=== PATIENT | male | born 1975 | race Caucasian/White ===

== ENCOUNTER 2017-12-29 19:50 | Inpatient (IN) | payer MEDICAID ==
[~2017-12-29] VITALS: Ht 182.9 cm; Wt 95.3 kg
--- NOTE | ~2017-12-29 | OP ---
PATIENT NAME: DANIEL ATWOOD MEDICAL RECORD: [id number] :71 LOCATION:[id number] ADMISSION DATE:12/29/17 SURGEON: FRANCISCA SEALS MD DATE OF OPERATION: 01/01/2018 PREOPERATIVE DIAGNOSIS: Chronic osteomyelitis of the left foot with multiple operative interventions. POSTOPERATIVE DIAGNOSIS: Chronic osteomyelitis of the left foot with multiple operative interventions. PROCEDURE: Left BKA. SURGEON: Francisca Seals MD ANESTHESIA: General. INTRAOPERATIVE COMPLICATIONS: None. SUMMARY OF PATHOLOGIC FINDINGS: Essentially no pathology was found at this level, but the patient's foot was riddled with chronic osteomyelitis. OPERATIVE SUMMARY IN DETAIL: After obtaining the appropriate preoperative orthopedic surgery consent as well as anesthetic consultation, evaluation, and clearance, the patient was brought to the operating room and placed on the operating table in supine position. After general laryngeal mask was administered, tourniquet was placed about the proximal aspect of the left lower extremity. Left lower extremity was then prepped and draped in routine sterile fashion. The leg was elevated and exsanguinated and tourniquet was inflated to 350 mmHg. A fishmouth incision was drawn. Incision was carefully taken down to the level of the periosteum across the tibia. Dissection was then carried down to the fibula and then a corticotomy was done across the tibia and the fibula and then the amputation knife was then used to create a long posterior flap. Portion of the posterior gastroc flap had to be trimmed. At this point, all vessels were identified, clamped, and ligated. When it was felt that all vessels had been identified, the tourniquet was deflated. No major bleeding was noted. One small vein had to be tied off. The operative site was then copiously irrigated and closed with the posterior flap fascia to the anterior periosteum and anterior fascia followed by closure of the skin with #1 Vicryl and skin kashif. Sterile dressings were applied. The patient was awakened and taken to the recovery room in stable condition. All final needle and sponge counts were correct. TRANSINT:[id number] Voice Confirmation ID: [id number] DOCUMENT ID: [id number] FRANCISCA SEALS MD at 1341 CC: [id number] DICTATION DATE: 01/01/182235 LABORER DEMOLITION: 01/02/18 0841 ADM IN [facility] [address] [place] [address]
[2017-12-29 22:22] LABS: HEMATOCRIT 35.5 % (42.0-54.0); HEMOGLOBIN 11.7 g/dL (13.5-17.5); MCH 28.1 pg (26.0-34.0); MCV 85.1 fL (80.0-100.0); MEAN PLATELET VOLUME 9.9 fL (7.4-10.4); PLATELET COUNT 254 10x3/uL (130-400); RBC 4.17 10x6/uL (4.20-6.10); WBC 13.3 10x3/uL (4.8-10.8)
[2017-12-29 22:35] LABS: ALBUMIN 2.6 g/dL (3.4-5.0); ALKALINE PHOSPHATASE 99 U/L (46-116); ALT (SGPT) 12 U/L (10-68); CALC OSMOLALITY 287 mosm/kg (275-300); CALCIUM 9.2 mg/dL (8.5-10.1); CARBON DIOXIDE 29.4 mmol/L (21.0-32.0); CHLORIDE - SERUM 98 mmol/L (98-107); CREATININE - SERUM 1.1 mg/dL (0.6-1.3); POTASSIUM - SERUM 3.6 mmol/L (3.5-5.1); PROTEIN - SERUM 7.1 g/dL (6.4-8.2); SODIUM 133 mmol/L (136-145); UREA NITROGEN 16 mg/dL (7-18); eGFR NON AFRICAN AMERICAN 77 mL/min (90-120)
[2017-12-29 22:39] LABS: GLUCOSE 479 mg/dL (74-106)
[2017-12-29 22:40] LABS: LYMPHOCYTES 11 % (15-50); MONOCYTES 12 % (2-11); NEUTROPHILS 77 % (40-80); PLATELET ESTIMATE NORMAL
[2017-12-29 23:20] VITALS: BP 121/78; BMI 28.5
[2017-12-30] MEDS ORDERED: LISINOPRIL10 MG PO (00:50)
[2017-12-30] MEDS ORDERED: NEURONTIN800 MG PO (00:51)
[2017-12-30] MEDS ORDERED: KLONOPIN1 MG PO (00:51)
[2017-12-30] MEDS ORDERED: BAYER CHEWABLE81 MG PO (00:51)
[2017-12-30] MEDS ORDERED: LANTUS INSULIN10 ML SC (00:52)
[2017-12-30] MEDS ORDERED: HUMALOG 30100 UNITS/ SC (00:53)
[2017-12-30 04:00] VITALS: BP 114/77
[2017-12-30 07:44] VITALS: BP 116/71
[2017-12-30 11:21] VITALS: BMI 28.5
[2017-12-30 11:34] VITALS: BP 106/60
[2017-12-30 14:43] VITALS: Ht 182.9 cm; Wt 95.3 kg
[2017-12-30 15:25] LABS: % SATURATION 8 % (15-55); IRON 17 ug/dl (35-150); TOTAL IRON BIND CAPACITY 200 ug/dl (260-445); UNSAT IRON BIND CAPACITY 183 ug/dl (150-375)
[2017-12-30 16:20] VITALS: BP 103/67
[2017-12-30 21:53] VITALS: BP 104/65
[2017-12-31 02:51] VITALS: BP 100/61
[2017-12-31 08:37] VITALS: BP 108/67
[2017-12-31 09:58] LABS: BASOPHILS 0.4 % (0-2); HEMATOCRIT 32.6 % (42.0-54.0); HEMOGLOBIN 10.5 g/dL (13.5-17.5); IMMATURE GRANULOCYTES 0.6 % (0-5); LYMPHOCYTES 22.8 % (15-50); MCHC 32.2 g/dL (31.0-37.0); MCV 86.9 fL (80.0-100.0); MEAN PLATELET VOLUME 10.4 fL (7.4-10.4); MONOCYTES 7.6 % (2-11); NEUTROPHILS 63.6 % (40-80); PLATELET COUNT 251 10x3/uL (130-400); RBC 3.75 10x6/uL (4.20-6.10)
[2017-12-31 10:16] LABS: WBC 9.5 10x3/uL (4.8-10.8)
[2017-12-31 10:21] LABS: CALCIUM 8.5 mg/dL (8.5-10.1); CARBON DIOXIDE 28.9 mmol/L (21.0-32.0); CHLORIDE - SERUM 99 mmol/L (98-107); SODIUM 133 mmol/L (136-145); UREA NITROGEN 20 mg/dL (7-18)
[2017-12-31 10:23] LABS: CALC OSMOLALITY 274 mosm/kg (275-300); CREATININE - SERUM 0.8 mg/dL (0.6-1.3); GLUCOSE 205 mg/dL (74-106); eGFR NON AFRICAN AMERICAN > 90 mL/min (90-120)
[2017-12-31 12:00] VITALS: BP 110/64
[2017-12-31 15:37] VITALS: BP 118/67
[2017-12-31 21:02] VITALS: BP 130/58
[2018-01-01 01:39] VITALS: BP 125/75
[2018-01-01 05:33] LABS: BASOPHILS 0.5 % (0-2); EOSINOPHILS 5.1 % (0-7); HEMATOCRIT 29.2 % (42.0-54.0); HEMOGLOBIN 9.4 g/dL (13.5-17.5); IMMATURE GRANULOCYTES 1.2 % (0-5); LYMPHOCYTES 29.2 % (15-50); MCH 27.5 pg (26.0-34.0); MCHC 32.2 g/dL (31.0-37.0); MCV 85.4 fL (80.0-100.0); MEAN PLATELET VOLUME 9.7 fL (7.4-10.4); MONOCYTES 9.7 % (2-11); NEUTROPHILS 54.3 % (40-80); PLATELET COUNT 240 10x3/uL (130-400); RBC 3.42 10x6/uL (4.20-6.10); RDW 13.7 % (11.5-14.5); WBC 7.8 10x3/uL (4.8-10.8)
[2018-01-01 05:42] LABS: CALC OSMOLALITY 272 mosm/kg (275-300); CALCIUM 8.2 mg/dL (8.5-10.1); CHLORIDE - SERUM 97 mmol/L (98-107); CREATININE - SERUM 0.9 mg/dL (0.6-1.3); GLUCOSE 296 mg/dL (74-106); POTASSIUM - SERUM 3.9 mmol/L (3.5-5.1); SODIUM 130 mmol/L (136-145); UREA NITROGEN 16 mg/dL (7-18); eGFR NON AFRICAN AMERICAN > 90 mL/min (90-120)
[2018-01-01 06:33] VITALS: BP 113/71
[2018-01-01 09:07] VITALS: BP 92/52
[2018-01-01 12:35] VITALS: BP 113/60
[2018-01-01 16:05] VITALS: BP 110/64
[2018-01-01 23:55] VITALS: BP 133/71
[2018-01-02 04:00] VITALS: BP 134/96
[2018-01-02 05:28] LABS: BASOPHILS 0.3 % (0-2); EOSINOPHILS 1.2 % (0-7); HEMATOCRIT 31.3 % (42.0-54.0); HEMOGLOBIN 10.1 g/dL (13.5-17.5); IMMATURE GRANULOCYTES 0.5 % (0-5); LYMPHOCYTES 14.2 % (15-50); MCH 27.4 pg (26.0-34.0); MCHC 32.3 g/dL (31.0-37.0); MCV 85.1 fL (80.0-100.0); MEAN PLATELET VOLUME 9.9 fL (7.4-10.4); MONOCYTES 7.7 % (2-11); NEUTROPHILS 76.1 % (40-80); PLATELET COUNT 256 10x3/uL (130-400); RBC 3.68 10x6/uL (4.20-6.10); RDW 13.5 % (11.5-14.5)
[2018-01-02 05:29] LABS: WBC 11.2 10x3/uL (4.8-10.8)
[2018-01-02 05:47] LABS: CALC OSMOLALITY 270 mosm/kg (275-300); CALCIUM 8.1 mg/dL (8.5-10.1); CARBON DIOXIDE 27.2 mmol/L (21.0-32.0); CHLORIDE - SERUM 97 mmol/L (98-107); CREATININE - SERUM 0.8 mg/dL (0.6-1.3); POTASSIUM - SERUM 4.4 mmol/L (3.5-5.1); SODIUM 132 mmol/L (136-145); UREA NITROGEN 14 mg/dL (7-18); eGFR NON AFRICAN AMERICAN > 90 mL/min (90-120)
[2018-01-02 05:55] LABS: GLUCOSE 192 mg/dL (74-106)
[2018-01-02 08:21] LABS: FOLATE (FOLIC ACID) - SERUM 8.2 ng/mL (>3.0)
[2018-01-02 10:27] VITALS: BP 94/54
[2018-01-02 18:18] VITALS: BP 109/62
[2018-01-02 20:00] VITALS: BP 113/82
[2018-01-03 04:00] VITALS: BP 102/60
[2018-01-03 07:00] LABS: BASOPHILS 0.2 % (0-2); EOSINOPHILS 3.6 % (0-7); HEMATOCRIT 30.5 % (42.0-54.0); IMMATURE GRANULOCYTES 0.6 % (0-5); LYMPHOCYTES 20.1 % (15-50); MCH 27.6 pg (26.0-34.0); MCHC 32.8 g/dL (31.0-37.0); MCV 84.3 fL (80.0-100.0); MEAN PLATELET VOLUME 9.9 fL (7.4-10.4); MONOCYTES 9.5 % (2-11); PLATELET COUNT 253 10x3/uL (130-400); RBC 3.62 10x6/uL (4.20-6.10); RDW 13.9 % (11.5-14.5); WBC 9.8 10x3/uL (4.8-10.8)
[2018-01-03 07:27] LABS: CARBON DIOXIDE 26.7 mmol/L (21.0-32.0); CHLORIDE - SERUM 99 mmol/L (98-107); CREATININE - SERUM 0.8 mg/dL (0.6-1.3); SODIUM 134 mmol/L (136-145); UREA NITROGEN 15 mg/dL (7-18); VANCOMYCIN - TROUGH 23.5 ug/mL (10.0-20.0); eGFR NON AFRICAN AMERICAN > 90 mL/min (90-120)
[2018-01-03 07:33] LABS: CALC OSMOLALITY 276 mosm/kg (275-300); GLUCOSE 248 mg/dL (74-106); POTASSIUM - SERUM 3.6 mmol/L (3.5-5.1)
[2018-01-03 08:46] VITALS: BP 99/66
[2018-01-03 13:10] VITALS: BP 96/47
[2018-01-03 16:33] VITALS: BP 89/57
[2018-01-03 19:44] VITALS: BP 124/68
[2018-01-03 20:00] VITALS: BP 100/58
[2018-01-04] VITALS: BP 99/62
[2018-01-04 05:15] VITALS: BP 92/45
[2018-01-04 05:16] LABS: BASOPHILS 0.4 % (0-2); EOSINOPHILS 4.3 % (0-7); HEMATOCRIT 27.2 % (42.0-54.0); HEMOGLOBIN 8.7 g/dL (13.5-17.5); IMMATURE GRANULOCYTES 0.9 % (0-5); LYMPHOCYTES 22.8 % (15-50); MCH 27.4 pg (26.0-34.0); MCV 85.5 fL (80.0-100.0); MEAN PLATELET VOLUME 9.8 fL (7.4-10.4); MONOCYTES 8.7 % (2-11); NEUTROPHILS 62.9 % (40-80); PLATELET COUNT 282 10x3/uL (130-400); RBC 3.18 10x6/uL (4.20-6.10); RDW 13.8 % (11.5-14.5); WBC 9.7 10x3/uL (4.8-10.8)
[2018-01-04 05:37] LABS: CALCIUM 7.8 mg/dL (8.5-10.1); CARBON DIOXIDE 25.7 mmol/L (21.0-32.0); CHLORIDE - SERUM 101 mmol/L (98-107); CREATININE - SERUM 0.9 mg/dL (0.6-1.3); POTASSIUM - SERUM 4.1 mmol/L (3.5-5.1); SODIUM 135 mmol/L (136-145); eGFR NON AFRICAN AMERICAN > 90 mL/min (90-120)
[2018-01-04 05:43] LABS: CALC OSMOLALITY 284 mosm/kg (275-300); GLUCOSE 331 mg/dL (74-106); UREA NITROGEN 19 mg/dL (7-18)
[2018-01-04 08:52] VITALS: BP 130/55
[2018-01-04 12:21] VITALS: BP 130/57
[2018-01-04 15:50] VITALS: BP 133/72
[2018-01-04 19:53] VITALS: BP 124/75
[2018-01-05] VITALS (8 sets, daily range): BP systolic 89–137; BP diastolic 49–90
[2018-01-05 06:06] LABS: BASOPHILS 0.3 % (0-2); EOSINOPHILS 4.9 % (0-7); HEMATOCRIT 30.8 % (42.0-54.0); HEMOGLOBIN 9.9 g/dL (13.5-17.5); IMMATURE GRANULOCYTES 0.6 % (0-5); LYMPHOCYTES 19.1 % (15-50); MCH 27.2 pg (26.0-34.0); MCHC 32.1 g/dL (31.0-37.0); MCV 84.6 fL (80.0-100.0); MEAN PLATELET VOLUME 9.8 fL (7.4-10.4); NEUTROPHILS 67.1 % (40-80); RBC 3.64 10x6/uL (4.20-6.10); RDW 13.4 % (11.5-14.5); WBC 10.3 10x3/uL (4.8-10.8)
[2018-01-05 06:09] LABS: PLATELET COUNT 384 10x3/uL (130-400)
[2018-01-05 06:24] LABS: ALBUMIN 2.1 g/dL (3.4-5.0); ALKALINE PHOSPHATASE 86 U/L (46-116); ALT (SGPT) 18 U/L (10-68); CALCIUM 8.9 mg/dL (8.5-10.1); CARBON DIOXIDE 28.7 mmol/L (21.0-32.0); CHLORIDE - SERUM 103 mmol/L (98-107); CREATININE - SERUM 0.8 mg/dL (0.6-1.3); POTASSIUM - SERUM 3.9 mmol/L (3.5-5.1); PROTEIN - SERUM 7.1 g/dL (6.4-8.2); SODIUM 138 mmol/L (136-145); eGFR NON AFRICAN AMERICAN > 90 mL/min (90-120)
[2018-01-05 06:27] LABS: CALC OSMOLALITY 281 mosm/kg (275-300); GLUCOSE 218 mg/dL (74-106); UREA NITROGEN 10 mg/dL (7-18)
[2018-01-06 04:36] VITALS: BP 134/84
[2018-01-06 07:15] LABS: BASOPHILS 0.3 % (0-2); EOSINOPHILS 4.9 % (0-7); HEMATOCRIT 29.1 % (42.0-54.0); HEMOGLOBIN 9.1 g/dL (13.5-17.5); IMMATURE GRANULOCYTES 1.3 % (0-5); LYMPHOCYTES 29.8 % (15-50); MCH 27.1 pg (26.0-34.0); MCHC 31.3 g/dL (31.0-37.0); MEAN PLATELET VOLUME 9.3 fL (7.4-10.4); MONOCYTES 9.3 % (2-11); NEUTROPHILS 54.4 % (40-80); PLATELET COUNT 382 10x3/uL (130-400); RBC 3.36 10x6/uL (4.20-6.10); RDW 13.7 % (11.5-14.5); WBC 8.6 10x3/uL (4.8-10.8)
[2018-01-06 07:16] LABS: MCV 86.6 fL (80.0-100.0)
[2018-01-06 07:59] LABS: ALBUMIN 1.9 g/dL (3.4-5.0); ALKALINE PHOSPHATASE 86 U/L (46-116); ALT (SGPT) 14 U/L (10-68); BILIRUBIN - TOTAL 0.13 mg/dL (0.2-1.3); CALC OSMOLALITY 283 mosm/kg (275-300); CALCIUM 8.2 mg/dL (8.5-10.1); CARBON DIOXIDE 31.6 mmol/L (21.0-32.0); CHLORIDE - SERUM 102 mmol/L (98-107); CREATININE - SERUM 0.8 mg/dL (0.6-1.3); GLUCOSE 213 mg/dL (74-106); POTASSIUM - SERUM 3.6 mmol/L (3.5-5.1); PROTEIN - SERUM 6.4 g/dL (6.4-8.2); SODIUM 140 mmol/L (136-145); UREA NITROGEN 11 mg/dL (7-18); eGFR NON AFRICAN AMERICAN > 90 mL/min (90-120)
[2018-01-06 09:09] VITALS: BP 112/73
[2018-01-06 12:30] VITALS: BP 109/75
[2018-01-06 15:58] VITALS: BP 107/67
[2018-01-06 20:00] VITALS: BP 114/66
[2018-01-07] VITALS: BP 110/69
[2018-01-07 04:00] VITALS: BP 128/63; BP 129/71
[2018-01-07 05:45] LABS: BASOPHILS 0.4 % (0-2); EOSINOPHILS 4.3 % (0-7); HEMATOCRIT 29.9 % (42.0-54.0); HEMOGLOBIN 9.5 g/dL (13.5-17.5); IMMATURE GRANULOCYTES 1.5 % (0-5); LYMPHOCYTES 29.5 % (15-50); MCH 27.4 pg (26.0-34.0); MCHC 31.8 g/dL (31.0-37.0); MCV 86.2 fL (80.0-100.0); MEAN PLATELET VOLUME 9.1 fL (7.4-10.4); MONOCYTES 7.9 % (2-11); NEUTROPHILS 56.4 % (40-80); PLATELET COUNT 434 10x3/uL (130-400); RBC 3.47 10x6/uL (4.20-6.10); RDW 13.7 % (11.5-14.5); WBC 9.5 10x3/uL (4.8-10.8)
[2018-01-07 06:05] LABS: ALBUMIN 1.9 g/dL (3.4-5.0); ALKALINE PHOSPHATASE 87 U/L (46-116); ALT (SGPT) 13 U/L (10-68); BILIRUBIN - TOTAL 0.22 mg/dL (0.2-1.3); CALC OSMOLALITY 279 mosm/kg (275-300); CALCIUM 8.7 mg/dL (8.5-10.1); CARBON DIOXIDE 30.7 mmol/L (21.0-32.0); CHLORIDE - SERUM 102 mmol/L (98-107); CREATININE - SERUM 0.7 mg/dL (0.6-1.3); PROTEIN - SERUM 6.7 g/dL (6.4-8.2); SODIUM 139 mmol/L (136-145); UREA NITROGEN 10 mg/dL (7-18); eGFR NON AFRICAN AMERICAN > 90 mL/min (90-120)
[2018-01-07 06:06] LABS: GLUCOSE 160 mg/dL (74-106)
[2018-01-07 08:57] VITALS: BP 119/73
[2018-01-07 12:22] VITALS: BP 134/59
[2018-01-07 16:39] VITALS: BP 121/70
[2018-01-07 20:00] VITALS: BP 109/87
[2018-01-08] VITALS: BP 111/72
[2018-01-08 04:00] VITALS: BP 130/58
[2018-01-08 06:43] LABS: BASOPHILS 0.4 % (0-2); EOSINOPHILS 4.2 % (0-7); HEMATOCRIT 31.3 % (42.0-54.0); HEMOGLOBIN 9.8 g/dL (13.5-17.5); IMMATURE GRANULOCYTES 2.3 % (0-5); LYMPHOCYTES 27.3 % (15-50); MCHC 31.3 g/dL (31.0-37.0); MCV 86.2 fL (80.0-100.0); MEAN PLATELET VOLUME 8.9 fL (7.4-10.4); MONOCYTES 6.9 % (2-11); NEUTROPHILS 58.9 % (40-80); PLATELET COUNT 445 10x3/uL (130-400); RBC 3.63 10x6/uL (4.20-6.10); RDW 13.8 % (11.5-14.5); WBC 9.7 10x3/uL (4.8-10.8)
[2018-01-08 07:34] LABS: ALBUMIN 1.9 g/dL (3.4-5.0); ALKALINE PHOSPHATASE 85 U/L (46-116); ALT (SGPT) 14 U/L (10-68); BILIRUBIN - TOTAL 0.25 mg/dL (0.2-1.3); CALC OSMOLALITY 277 mosm/kg (275-300); CALCIUM 8.3 mg/dL (8.5-10.1); CARBON DIOXIDE 29.5 mmol/L (21.0-32.0); CHLORIDE - SERUM 101 mmol/L (98-107); CREATININE - SERUM 0.6 mg/dL (0.6-1.3); GLUCOSE 157 mg/dL (74-106); PROTEIN - SERUM 6.8 g/dL (6.4-8.2); SODIUM 138 mmol/L (136-145); UREA NITROGEN 10 mg/dL (7-18); eGFR NON AFRICAN AMERICAN > 90 mL/min (90-120)
[2018-01-08 08:27] VITALS: BP 104/57
[2018-01-08] MEDS ORDERED: CYCLOBENZAPRINE10 MG PO (08:48)
[2018-01-08] MEDS ORDERED: DILAUDID2 MG PO (08:48)
[2018-01-08] MEDS ORDERED: PERCOCET 10/3251 TA1 PO (08:48)
[2018-01-08] MEDS ORDERED: ELIQUIS2.5 MG PO (08:49)
[2018-01-08] MEDS ORDERED: DOXYCYCLINE HY100 M2 PO (08:50)
[2018-01-08 12:29] VITALS: BP 116/57
[2018-01-08 16:48] VITALS: BP 113/71
== END 2018-01-08 19:30 | disposition home health service (06) | DRG 854 ==
LOC: D.MS 19:50
PROVIDERS: Family Medicine; Internal Medicine Nephrology; Orthopaedic Surgery
PROC: 0Y6J0Z3 Detachment at Left Lower Leg, Low, Open Approach (ICD-10-PCS; principal; 2018-01-01 16:15)
DX: A41.9 Sepsis, unspecified organism (principal); M86.672 Other chronic osteomyelitis, left ankle and foot; E87.1 Hypo-osmolality and hyponatremia; L03.116 Cellulitis of left lower limb; D62 Acute posthemorrhagic anemia; E11.69 Type 2 diabetes mellitus with other specified complication; E11.65 Type 2 diabetes mellitus with hyperglycemia; E11.40 Type 2 diabetes mellitus with diabetic neuropathy, unspecified; I10 Essential (primary) hypertension; Z91.19 Patient's noncompliance with other medical treatment and regimen; E78.5 Hyperlipidemia, unspecified; B96.89 Other specified bacterial agents as the cause of diseases classified elsewhere; B95.61 Methicillin susceptible Staphylococcus aureus infection as the cause of diseases classified elsewhere; B95.1 Streptococcus, group B, as the cause of diseases classified elsewhere; F41.9 Anxiety disorder, unspecified